=== PATIENT | male | born 1960 | race Two or more races ===

== ENCOUNTER 2020-11-04 18:00 | Inpatient (IN) | payer MEDICARE, MEDICAID ==
[~2020-11-04] VITALS: Ht 177.8 cm; Wt 62.6 kg
[~2020-11-04 18:00] MED LIST: OLAN10TA74 PO; OLAN20TA2 PO; TRAZ-257 PO
[2020-11-04] MEDS ORDERED: LORazepam 2 MG TABLET PO PRN (19:00)
[2020-11-04] MEDS ORDERED: HALOPERIDOL 5 MG TABLET PO PRN (19:00)
[2020-11-04] MEDS ORDERED: HYDR50CA9 PO (19:23)
[2020-11-04] MEDS ORDERED: ARIP15TA27 PO (19:24)
[2020-11-04 19:43] LABS: GLUCOMETER DEV NAME(LOC) POC.BV
[2020-11-04 20:30] VITALS: BP 148/81
[2020-11-05 00:11] VITALS: BP 102/63
[2020-11-05] MEDS ORDERED: LOPERAMIDE HCL 2 MG CAPSULE PO PRN (07:30)
[2020-11-05] MEDS ORDERED: MAGNESIUM HYDROXIDE SUSPENSION 30 ML UDCUP PO PRN (07:30)
[2020-11-05] MEDS ORDERED: ONDANSETRON HCL 4 MG TABLET PO PRN (07:30)
[2020-11-05] MEDS ORDERED: GuaiFENesin/D-METHORPHAN [SUGAR-FREE] 200-20MG/10 ML SYRUP UDCUP PO PRN (07:30)
[2020-11-05] MEDS ORDERED: IBUPROFEN 400 MG TABLET PO PRN (07:30)
[2020-11-05] MEDS ORDERED: ACETAMINOPHEN 325 MG TABLET PO PRN (07:30)
[2020-11-05] MEDS ORDERED: PETROLATUM,WHITE 28 GM JELLY TP PRN (07:30)
[2020-11-05] MEDS ORDERED: CloNIDine HCL 0.1 MG TABLET PO PRN (07:30)
[2020-11-05] MEDS ORDERED: MAG HYDROX/AL HYDROX/SIMETH ES 30 ML SUSPENSION UDCUP PO PRN (07:30)
[2020-11-05] MEDS ORDERED: ALBUTEROL SULFATE HFA 90 MCG/PUFF 8 GM INHALER IH PRN (07:30)
[2020-11-05] MEDS ORDERED: NICOTINE 14 MG/24 HOUR PATCH TD PRN (07:30)
[2020-11-05] MEDS ORDERED: DOCUSATE SODIUM 100 MG CAPSULE PO PRN (07:30)
[2020-11-05 07:40] LABS: BASOPHILS % (AUTO) 1.2 % (0.0-2.0); HEMOGLOBIN 13.5 g/dL (13.5-17.5); LYMPHOCYTES # (AUTO) 2.1 K/uL (1.0-4.8); LYMPHOCYTES % (AUTO) 37.4 % (22.0-44.0); MEAN CORPUSCULAR HEMOGLOBIN 33.4 pg (26.0-34.0); MEAN CORPUSCULAR HGB CONC 33.7 G/dL (31.0-37.0); MEAN CORPUSCULAR VOLUME 99 fL (80-100); MONOCYTES # (AUTO) 0.6 K/uL (0.1-1.0); MONOCYTES % (AUTO) 10.6 % (2.0-9.0); NEUTROPHILS # (AUTO) 2.7 K/uL (1.8-7.7); NEUTROPHILS % (AUTO) 47.8 % (40.0-70.0); PLATELET COUNT (AUTO) 159 K/uL (150-450); RED BLOOD CELL COUNT(AUTO) 4.04 MIL/uL (4.50-5.90)
[2020-11-05 08:11] VITALS: BP 131/73
[2020-11-05 08:15] LABS: ALANINE AMINOTRANSFERASE 109 U/L (12-78); ALBUMIN 3.2 g/dL (3.4-5.0); ALKALINE PHOSPHATASE 61 U/L (46-116); ANION GAP 3 mmol/L (8-16); ASPARTATE AMINOTRANSFERASE 76 U/L (15-37); BILIRUBIN,TOTAL 0.7 mg/dL (0.1-1.0); CALCIUM, TOTAL 8.8 mg/dL (8.8-10.5); CARBON DIOXIDE 28 mmol/L (22-29); CHLORIDE 108 mmol/L (98-107); CREATININE 0.89 mg/dL (0.60-1.30); GLOMERULAR FILTR. RATE CALC > 60 mL/min (>60); GLUCOSE,RANDOM 79 mg/dL (70-110); POTASSIUM 4.2 mmol/L (3.5-5.1); SODIUM SERUM 139 mmol/L (136-145); THYROID STIMULATING HORMONE 3.66 uIU/mL (0.36-3.74); TOTAL PROTEIN, SERUM 6.9 g/dL (6.4-8.2); UREA NITROGEN, BLOOD 19 mg/dL (7-18)
[2020-11-05] MEDS: NICOTINE 14 MG/24 HOUR PATCH TD SCH (08:25)
[2020-11-05 16:03] VITALS: BP 130/70
[2020-11-05] MEDS: OLANZapine 10 MG TABLET PO SCH (20:00)
[2020-11-05] MEDS: ZOLPIDEM TARTRATE 10 MG TABLET PO PRN ×2 (20:00→20:58)
[2020-11-06 00:34] VITALS: BP 134/79
[2020-11-06] MEDS: NICOTINE 14 MG/24 HOUR PATCH TD SCH (08:20)
[2020-11-06 08:29] VITALS: BP 128/87
[2020-11-06 16:14] VITALS: BP 125/69
[2020-11-06] MEDS: OLANZapine 10 MG TABLET PO SCH (20:13)
[2020-11-06] MEDS: ZOLPIDEM TARTRATE 10 MG TABLET PO PRN (21:36)
[2020-11-07 06:00] VITALS: BP 123/74
[2020-11-07 08:21] VITALS: BP 139/74
[2020-11-07] MEDS: NICOTINE 14 MG/24 HOUR PATCH TD SCH (09:43)
[2020-11-07 16:07] VITALS: BP 120/72
[2020-11-07] MEDS: OLANZapine 10 MG TABLET PO SCH (20:12)
[2020-11-07] MEDS: TraZODone HCL 100 MG TABLET PO SCH (20:12)
[2020-11-07] MEDS: HydrOXYzine PAMOATE 50 MG CAPSULE PO SCH (20:12)
[2020-11-08 00:07] VITALS: BP 119/73
[2020-11-08 08:09] VITALS: BP 134/66
[2020-11-08] MEDS: NICOTINE 14 MG/24 HOUR PATCH TD SCH (08:45)
[2020-11-08 16:06] VITALS: BP 111/80
[2020-11-08] MEDS: OLANZapine 10 MG TABLET PO SCH (20:02)
[2020-11-08] MEDS: TraZODone HCL 100 MG TABLET PO SCH (20:02)
[2020-11-08] MEDS: HydrOXYzine PAMOATE 50 MG CAPSULE PO SCH (20:02)
[2020-11-09 00:16] VITALS: BP 127/74
[2020-11-09 08:19] VITALS: BP 110/69
[2020-11-09] MEDS: NICOTINE 14 MG/24 HOUR PATCH TD SCH (08:28)
[2020-11-09 16:16] VITALS: BP 104/80
[2020-11-09] MEDS: OLANZapine 10 MG TABLET PO SCH (20:06)
[2020-11-09] MEDS: TraZODone HCL 100 MG TABLET PO SCH (20:06)
[2020-11-09] MEDS: HydrOXYzine PAMOATE 50 MG CAPSULE PO SCH (20:06)
[2020-11-10 00:20] VITALS: BP 127/68
[2020-11-10 07:43] LABS: COVID AG,FIA SOURCE NASOPHARYNGEAL
[2020-11-10 08:03] VITALS: BP 113/70
[2020-11-10] MEDS: NICOTINE 14 MG/24 HOUR PATCH TD SCH (08:03)
[2020-11-10] MEDS ORDERED: OLAN20TA2 PO (11:24)
[2020-11-10] MEDS ORDERED: TRAZ-257 PO (11:24)
[2020-11-10] MEDS ORDERED: HYDR50CA9 PO (11:24)
== END 2020-11-10 13:45 | disposition home or self-care (01) | DRG 885 ==
LOC: B2X 19:00
DX: F25.1 Schizoaffective disorder, depressive type (principal); B18.2 Chronic viral hepatitis C; E44.0 Moderate protein-calorie malnutrition; Z68.1 Body mass index [BMI] 19.9 or less, adult; Z20.822 Contact with and (suspected) exposure to COVID-19; J44.9 Chronic obstructive pulmonary disease, unspecified; K21.9 Gastro-esophageal reflux disease without esophagitis; F17.200 Nicotine dependence, unspecified, uncomplicated; K59.00 Constipation, unspecified; Z79.899 Other long term (current) drug therapy
CPT/HCPCS: 80053; 84443; 85025

== ENCOUNTER 2022-11-15 12:12 | Inpatient (IN) | payer OTHER, MEDICAID ==
[~2022-11-15] VITALS: Ht 177.8 cm; Wt 61.0 kg
[~2022-11-15 12:12] MED LIST changes: +HYDR50CA7 PO; -OLAN10TA74 PO
[2022-11-15 14:17] LABS: BASOPHILS % (AUTO) 1.1 % (0.0-2.0); EOSINOPHILS % (AUTO) 1.7 % (1.0-6.0); LYMPHOCYTES # (AUTO) 2.6 K/uL (1.0-4.8); LYMPHOCYTES % (AUTO) 33.4 % (22.0-44.0); MEAN CORPUSCULAR HGB CONC 34.1 G/dL (31.0-37.0); MEAN CORPUSCULAR VOLUME 97 fL (80-100); MONOCYTES # (AUTO) 0.6 K/uL (0.1-1.0); MONOCYTES % (AUTO) 7.5 % (2.0-9.0); NEUTROPHILS # (AUTO) 4.4 K/uL (1.8-7.7); NEUTROPHILS % (AUTO) 56.3 % (40.0-70.0); PLATELET COUNT (AUTO) 267 K/uL (150-450); RED BLOOD CELL COUNT(AUTO) 4.54 MIL/uL (4.50-5.90); RED CELL DISTRIBUTION WIDTH 14.1 % (11.5-14.5); WHITE BLOOD COUNT (AUTO) 7.8 K/uL (4.5-11.0)
[2022-11-15 14:23] LABS: ANION GAP 3 mmol/L (8-16); CALCIUM, TOTAL 9.3 mg/dL (8.8-10.5); CARBON DIOXIDE 32 mmol/L (22-29); CHLORIDE 105 mmol/L (98-107); CREATININE 0.96 mg/dL (0.60-1.30); GLOMERULAR FILTR. RATE CALC > 60 mL/min (>60); GLUCOSE,RANDOM 86 mg/dL (70-110); POTASSIUM 4.8 mmol/L (3.5-5.1); SODIUM SERUM 140 mmol/L (136-145); UREA NITROGEN, BLOOD 11 mg/dL (7-18)
[2022-11-15 14:29] LABS: ALANINE AMINOTRANSFERASE 18 U/L (12-78); ALBUMIN 4.1 g/dL (3.4-5.0); ALKALINE PHOSPHATASE 71 U/L (46-116); ASPARTATE AMINOTRANSFERASE 17 U/L (15-37); BILIRUBIN,TOTAL 0.7 mg/dL (0.1-1.0); TOTAL PROTEIN, SERUM 7.8 g/dL (6.4-8.2)
[2022-11-15 14:32] LABS: ALCOHOL, BLOOD (SERUM) < 3 mg/dL (0-10)
[2022-11-15] MEDS ORDERED: HALOPERIDOL 5 MG TABLET PO PRN (15:45)
[2022-11-15] MEDS ORDERED: LORazepam 2 MG TABLET PO PRN (15:45)
[2022-11-15 20:08] LABS: COVID AG,FIA SOURCE NASAL SWAB
[2022-11-15 20:29] LABS: SARS-COV2 (COVID) ANTIGEN,FIA Negative (Negative)
[2022-11-15] MEDS ORDERED: PETROLATUM,WHITE 28 GM JELLY TP PRN (21:30)
[2022-11-15] MEDS ORDERED: OMEPRAZOLE 20 MG CAPSULE PO PRN (21:30)
[2022-11-15] MEDS ORDERED: LOPERAMIDE HCL 2 MG CAPSULE PO PRN (21:30)
[2022-11-15] MEDS ORDERED: IBUPROFEN 600 MG TABLET PO PRN (21:30)
[2022-11-15] MEDS ORDERED: MAG HYDROX/AL HYDROX/SIMETH ES 30 ML SUSPENSION UDCUP PO PRN (21:30)
[2022-11-15] MEDS ORDERED: ONDANSETRON HCL 4 MG TABLET PO PRN (21:30)
[2022-11-15] MEDS ORDERED: MAGNESIUM HYDROXIDE SUSPENSION 30 ML UDCUP PO PRN (21:30)
[2022-11-15] MEDS ORDERED: CloNIDine HCL 0.1 MG TABLET PO PRN (21:30)
[2022-11-15] MEDS ORDERED: ALBUTEROL SULFATE HFA 90 MCG/PUFF 8 GM INHALER IH PRN (21:30)
[2022-11-15] MEDS ORDERED: BACITRACIN 28 GM OINTMENT TP PRN (21:30)
[2022-11-15] MEDS ORDERED: DOCUSATE SODIUM 100 MG CAPSULE PO PRN (21:30)
[2022-11-15] MEDS ORDERED: ACETAMINOPHEN 325 MG TABLET PO PRN (21:30)
[2022-11-15] MEDS ORDERED: BENZOCAINE/MENTHOL LOZENGE PO PRN (21:30)
[2022-11-15] MEDS: ZOLPIDEM TARTRATE 10 MG TABLET PO PRN (22:07)
[2022-11-15 22:14] VITALS: BP 122/78; PULSE 78; RESP 18; TEMP 97.8; O2SAT 97
[2022-11-16 09:42] VITALS: BP 130/74; PULSE 81; RESP 18; TEMP 96.9; O2SAT 96
[2022-11-16 12:47] LABS: APPEARANCE,URINE HAZY (CLEAR); BILIRUBIN,URINE NEGATIVE (NEGATIVE); COLOR,URINE LIGHT YELLOW (YELLOW); GLUCOSE, URINE (UA) NEGATIVE (NEGATIVE); KETONES,URINE NEGATIVE (NEGATIVE); LEUKOCYTE ESTERASE ,URINE LARGE (NEGATIVE); NITRATE,URINE NEGATIVE (NEGATIVE); OCCULT BLOOD,URINE NEGATIVE (NEGATIVE); PROTEIN,URINE NEGATIVE (NEGATIVE); SPECIFIC GRAVITIY, URINE 1.018 (1.003-1.030); UROBILINOGEN,URINE <=1.0 mg/dL (<=1.0)
[2022-11-16 12:57] LABS: ALCOHOL, URINE DRUG SCREEN NEGATIVE (NEGATIVE); AMPHET/METH SCREEN,URINE NEGATIVE (NEGATIVE); BARBITURATE SCREEN, URINE NEGATIVE (NEGATIVE); BENZODIAZEPINES SCREEN,URINE NEGATIVE (NEGATIVE); CANNABINOID SCREEN,URINE NEGATIVE (NEGATIVE); COCAINE SCREEN,URINE NEGATIVE (NEGATIVE); METHADONE SCREEN, URINE NEGATIVE (NEGATIVE); OPIATE SCREEN,URINE NEGATIVE (NEGATIVE); PHENCYCLIDINE SCREEN,URINE NEGATIVE (NEGATIVE)
[2022-11-16 12:59] LABS: RBC,URINE 0-2 /HPF (0-2)
[2022-11-16 13:00] LABS: BACTERIA,URINE Moderate /HPF (None Seen)
[2022-11-16] MEDS: TraZODone HCL 100 MG TABLET PO SCH (20:45)
[2022-11-16] MEDS: HydrOXYzine PAMOATE 50 MG CAPSULE PO SCH (20:45)
[2022-11-16] MEDS: OLANZapine 10 MG TABLET PO SCH (20:45)
[2022-11-16 21:05] VITALS: BP 124/66; PULSE 74; RESP 18; TEMP 97.4; O2SAT 98
[2022-11-16] MEDS: ZOLPIDEM TARTRATE 10 MG TABLET PO PRN (21:43)
[2022-11-17] MEDS: NITROFURANTOIN MONOHYD/M-CRYST 100 MG CAPSULE [MACROBID] PO SCH ×2 (10:04→18:57)
[2022-11-17 12:23] VITALS: BP 118/72; PULSE 76; RESP 17; TEMP 97.9; O2SAT 97
[2022-11-17 20:18] VITALS: BP 137/80; PULSE 78; RESP 18; TEMP 97.1; O2SAT 99
[2022-11-17] MEDS: HydrOXYzine PAMOATE 50 MG CAPSULE PO SCH (20:59)
[2022-11-17] MEDS: TraZODone HCL 100 MG TABLET PO SCH (21:00)
[2022-11-17] MEDS: OLANZapine 10 MG TABLET PO SCH (21:00)
[2022-11-18] MEDS: NITROFURANTOIN MONOHYD/M-CRYST 100 MG CAPSULE [MACROBID] PO SCH ×2 (09:41→16:03)
[2022-11-18 10:34] VITALS: BP 101/78; PULSE 90; RESP 18; TEMP 96.7; O2SAT 98
[2022-11-18] MEDS: HydrOXYzine PAMOATE 50 MG CAPSULE PO SCH (20:10)
[2022-11-18] MEDS: OLANZapine 10 MG TABLET PO SCH (20:10)
[2022-11-18] MEDS: TraZODone HCL 100 MG TABLET PO SCH (20:10)
[2022-11-18 20:56] VITALS: BP 129/74; PULSE 79; RESP 18; TEMP 97.3; O2SAT 96
[2022-11-18] MEDS: ZOLPIDEM TARTRATE 10 MG TABLET PO PRN (21:46)
[2022-11-19] MEDS: NITROFURANTOIN MONOHYD/M-CRYST 100 MG CAPSULE [MACROBID] PO SCH ×2 (08:19→16:10)
[2022-11-19 13:06] VITALS: BP 124/83; PULSE 96; RESP 19; TEMP 97.3; O2SAT 99
[2022-11-19 20:51] VITALS: BP 128/83; PULSE 87; RESP 18; TEMP 98.4; O2SAT 100
[2022-11-19] MEDS: TraZODone HCL 100 MG TABLET PO SCH (21:21)
[2022-11-19] MEDS: HydrOXYzine PAMOATE 50 MG CAPSULE PO SCH (21:21)
[2022-11-19] MEDS: OLANZapine 10 MG TABLET PO SCH (21:21)
[2022-11-19] MEDS: ZOLPIDEM TARTRATE 10 MG TABLET PO PRN (21:21)
[2022-11-20] MEDS: NITROFURANTOIN MONOHYD/M-CRYST 100 MG CAPSULE [MACROBID] PO SCH ×2 (08:40→16:36)
[2022-11-20 16:14] VITALS: BP 98/63; PULSE 109; RESP 18; TEMP 96.9; O2SAT 96
[2022-11-20] MEDS ORDERED: OLAN10TA74 PO (20:22)
[2022-11-20] MEDS ORDERED: TRAZ-257 PO (20:22)
[2022-11-20] MEDS: TraZODone HCL 100 MG TABLET PO SCH (21:14)
[2022-11-20] MEDS: OLANZapine 10 MG TABLET PO SCH (21:14)
[2022-11-20] MEDS: HydrOXYzine PAMOATE 50 MG CAPSULE PO SCH (21:15)
[2022-11-20] MEDS: ZOLPIDEM TARTRATE 10 MG TABLET PO PRN (21:15)
[2022-11-20 21:54] VITALS: BP 119/71; PULSE 89; RESP 18; TEMP 97.7; O2SAT 98
[2022-11-21] MEDS: NITROFURANTOIN MONOHYD/M-CRYST 100 MG CAPSULE [MACROBID] PO SCH ×2 (08:42→16:35)
== END 2022-11-21 16:53 | disposition home or self-care (01) | DRG 885 ==
LOC: EMS 12:35 → 3EI 18:34
PROVIDERS: ADMIT Psychiatry & Neurology Psychiatry; ATTEND Psychiatry & Neurology Psychiatry
DX: F20.9 Schizophrenia, unspecified (principal); B19.20 Unspecified viral hepatitis C without hepatic coma; R45.851 Suicidal ideations; F41.9 Anxiety disorder, unspecified; J44.9 Chronic obstructive pulmonary disease, unspecified; K21.9 Gastro-esophageal reflux disease without esophagitis; G47.00 Insomnia, unspecified; F17.210 Nicotine dependence, cigarettes, uncomplicated; Z20.822 Contact with and (suspected) exposure to COVID-19; K59.00 Constipation, unspecified; F10.10 Alcohol abuse, uncomplicated; F12.10 Cannabis abuse, uncomplicated; Z90.49 Acquired absence of other specified parts of digestive tract; F29 Unspecified psychosis not due to a substance or known physiological condition
CPT/HCPCS: 80053; 80307; 81001; 85025; 87086; 87186; 99285; G0480